=== PATIENT | male | born 1970 | race Caucasian/White ===

== ENCOUNTER → 2018-05-27 | Outpatient (REF) | payer BC ==
[2018-05-27 13:02] LABS: BASO # 0.1 10^3/uL (0.0-0.2); BASO % 1.3 % (0.0-1.0); EOS # 0.2 10^3/uL (0.0-0.50); EOS % 5.9 % (0.0-3.0); HEMATOCRIT 42.1 % (42.0-52.0); HEMOGLOBIN 14.6 g/dl (13.5-17.5); IMMATURE GRANULOCYTE % 0.3 % (0-3.0); LYMPH # 1.1 10^3/uL (1.5-4.5); LYMPH % 30.6 % (24.0-44.0); MEAN CORPUSCULAR HEMOGLOBIN 29.5 pg (27.0-33.0); MEAN CORPUSCULAR HGB CONC 34.7 g/dl (32.0-36.5); MEAN CORPUSCULAR VOLUME 85.1 fl (80.0-96.0); MONO # 0.3 10^3/uL (0.0-0.8); MONO % 8.3 % (0.0-5.0); NEUTROPHILS % 53.6 % (36.0-66.0); PLATELET COUNT, AUTOMATED 183 10^3/uL (150-450); RED BLOOD COUNT 4.95 10^6/uL (4.30-6.10); RED CELL DISTRIBUTION WIDTH 12.1 % (11.5-14.5); WHITE BLOOD COUNT 3.7 10^3/uL (4.0-10.0)
[2018-05-27 14:42] LABS: ALBUMIN 4.3 GM/DL (3.2-5.2); ALKALINE PHOSPHATASE 41 U/L (45-117); ALT/SGPT 34 U/L (12-78); ANION GAP 5 MEQ/L (8-16); AST/SGOT 13 U/L (7-37); BLOOD UREA NITROGEN 16 MG/DL (7-18); CARBON DIOXIDE LEVEL 32 MEQ/L (21-32); CHLORIDE LEVEL 107 MEQ/L (98-107); CHOLESTEROL LEVEL 262 MG/DL (<200); CHOLESTEROL RISK RATIO 4.517 (<5); CREATININE FOR GFR 0.92 MG/DL (0.70-1.30); GLOMERULAR FILTRATION RATE > 60.0 (>60); GLUCOSE, FASTING 94 MG/DL (70-100); HDL CHOLESTEROL 58 MG/DL (>40); LDL CHOLESTEROL 174.6 MG/DL (<100); NON-HDL-C 204 MG/DL; POTASSIUM SERUM 4.5 MEQ/L (3.5-5.1); SODIUM LEVEL 144 MEQ/L (136-145); TOTAL PROTEIN 7.6 GM/DL (6.4-8.2); TRIGLYCERIDES LEVEL 147 MG/DL (<150)
== END ==
LOC: M LABDRAW1 11:16
DX: Z00.00 Encounter for general adult medical examination without abnormal findings (principal)
CPT/HCPCS: 80053

== ENCOUNTER → 2019-06-02 | Outpatient (REF) | payer BC ==
[2019-06-02 13:23] LABS: BASO % 0.7 % (0.0-1.0); EOS # 0.2 10^3/uL (0.0-0.50); EOS % 5.6 % (0.0-3.0); HEMATOCRIT 42.8 % (42.0-52.0); HEMOGLOBIN 14.9 g/dl (13.5-17.5); LYMPH # 1.3 10^3/uL (1.5-4.5); LYMPH % 32.4 % (24.0-44.0); MEAN CORPUSCULAR HGB CONC 34.8 g/dl (32.0-36.5); MEAN CORPUSCULAR VOLUME 86.1 fl (80.0-96.0); MONO # 0.3 10^3/uL (0.0-0.8); MONO % 6.6 % (0.0-5.0); NEUTROPHILS # 2.2 10^3/uL (1.8-7.7); NEUTROPHILS % 54.5 % (36.0-66.0); PLATELET COUNT, AUTOMATED 164 10^3/uL (150-450); RED BLOOD COUNT 4.97 10^6/uL (4.30-6.10); WHITE BLOOD COUNT 4.1 10^3/uL (4.0-10.0)
[2019-06-02 13:56] LABS: ALT/SGPT 26 U/L (12-78); BILIRUBIN,TOTAL 0.7 MG/DL (0.2-1.0); BLOOD UREA NITROGEN 13 MG/DL (7-18); CALCIUM LEVEL 8.6 MG/DL (8.5-10.1); CARBON DIOXIDE LEVEL 28 MEQ/L (21-32); CHLORIDE LEVEL 107 MEQ/L (98-107); CHOLESTEROL LEVEL 231 MG/DL (<200); CREATININE FOR GFR 0.88 MG/DL (0.70-1.30); GLOMERULAR FILTRATION RATE > 60.0 (>56); GLUCOSE, FASTING 89 MG/DL (70-100); HDL CHOLESTEROL 50 MG/DL (>40); LDL CHOLESTEROL 154 MG/DL (<100); NON-HDL-C 181 MG/DL; POTASSIUM SERUM 4.1 MEQ/L (3.5-5.1); SODIUM LEVEL 141 MEQ/L (136-145); TRIGLYCERIDES LEVEL 135 MG/DL (<150)
== END ==
LOC: M LABDRAW1 13:11
PROVIDERS: ATTEND Family Medicine
DX: Z00.00 Encounter for general adult medical examination without abnormal findings (principal); R00.1 Bradycardia, unspecified

== ENCOUNTER → 2020-07-26 | Outpatient (CLI) | payer BC ==
[~2020-07-26] MED LIST: BUDE8.43 NS; HYDR-3713 PO
== END ==
LOC: M LABSMTC 11:27
PROVIDERS: ATTEND Anesthesiology
DX: Z01.812 Encounter for preprocedural laboratory examination (principal); Z20.828 Contact with and (suspected) exposure to other viral communicable diseases

== ENCOUNTER 2020-07-31 08:52 | Day surgery (SDC) | payer BC ==
[~2020-07-31] VITALS: Ht 182.9 cm; Wt 90.7 kg
[~2020-07-31 08:52] MED LIST changes: +BUPIVACAINE HCL 0.5% 30 ML VIAL As Ordered ONE; -HYDR-3713 PO; +LIDOCAINE 1% SDV 30ML VIAL As Ordered ONE; +LIDOCAINE 2% 100MG/5ML SDV (FOR ANES.) As Ordered ONE; +LR 1,000 ML IV ONE; +MIDAZOLAM INJ 2MG/2ML VIAL (J2250 PER 1MG) As Ordered ONE; +ONDANSETRON 4MG/2ML VIAL As Ordered ONE; +ceFAZolin SOD 2 GM in IV 1 EA IV ONE; +dexameTHASONE 4 MG/ML 1ML VIAL (J1100 PER 1MG) As Ordered ONE; +fentaNYL 100 MCG/2 ML INJECTION (J3010) As Ordered ONE; +propofoL 200 MG/20 ML VIAL As Ordered ONE
[2020-07-31] MEDS ORDERED: KETAMINE HCL 200 MG/20 ML VIAL As Ordered ONE (09:44)
[2020-07-31] MEDS ORDERED: ACETAMINOPHEN 1000MG 100ML IV BTL (OFIRMEV) (J0131 PER 10MG) As Ordered ONE (10:01)
[2020-07-31] MEDS ORDERED: propofoL 200 MG/20 ML VIAL As Ordered ONE (10:20)
[2020-07-31] MEDS ORDERED: HYDR-3713 PO (10:42)
[2020-07-31] MEDS ORDERED: oxyCODONE 5MG TAB PO PRN (11:15)
[2020-07-31] MEDS ORDERED: ONDANSETRON 4MG/2ML VIAL IV PRN (11:15)
[2020-07-31] MEDS ORDERED: LR 1,000 ML IV SCH (11:15)
[2020-07-31 12:20] VITALS: BP 137/83
--- NOTE | 2020-08-01 07:59 | RO ---
DATE OF OPERATION: 07/31/2020 PREOPERATIVE DIAGNOSIS: Right foot bunion hallux valgus. POSTOPERATIVE DIAGNOSIS: Right foot bunion hallux valgus. PROCEDURE: Right foot bunionectomy, first metatarsal osteotomy and Jero osteotomy. SURGEON: Ronald Hunter DPM ENVIRONMENTAL SERVICES AIDE: None. ANESTHESIA: Monitored anesthesia care. PREOPERATIVE INJECTION: 20 cc of a 1:1 mixture of 1% Lidocaine with 0.5% Marcaine plain. ESTIMATED BLOOD LOSS: Minimal. MATERIALS: Arthrex 3.5 headless compression screw, 3-0 and 4-0 Vicryl, and Arthrex DynaNite staple. INJECTION: 1 cc Decadron 4 mg/mL. COMPLICATIONS: None. CONDITION: Stable. INDICATIONS: Moo Estrella is a 50-year-old male who was admitted to [facility] with a painful bunion. He presents today for surgical correction. The patient's side and site were identified and marked preoperatively. Consent was reviewed and obtained. The risks, complications and alternatives to the procedure explained to the patient in detail and all questions were answered. PROCEDURE: The patient was brought to the operating room and placed on the operating room table in the supine position. Monitored anesthesia care was delivered by the anesthesia team. Preoperative injection of 20 cc of 1:1 mixture of 1% Lidocaine plain and 0.5% Marcaine plain were injected in the right foot. The right foot was prepped and draped in normal sterile fashion. A tourniquet was applied on the right ankle and inflated to 250 mmHg. A dorsomedial incision was made and carried through with a #15 blade. Dissection was carried down to the first metatarsophalangeal joint capsule. A T-capsulotomy was performed exposing the metatarsal head. Following this, a lateral release was performed releasing the adductor tendon and sesamoidal ligaments. A McGlamry elevator was used to release the plantar structures. Following this, the medial eminence of the metatarsal head was resected with a sagittal saw and an osteotomy was performed on the metatarsal head, transposing it laterally. This was fixated with an Arthrex 3.5 headless compression screw. The remaining bone ledge was resected with a sagittal saw and smoothed with a rasp. Following this, attention was paid to the proximal phalanx. A wedge of the medial cortex was removed using the sagittal saw, placing the toe in a more medial position. This was fixated with a Arthrex DynaNite staple. Following this, the site was irrigated with normal saline. A small wedge of capsule was removed using #15 blade and the capsule was repaired with 3-0 Vicryl, subcutaneous closure with 4-0 Vicryl and skin closure with 4-0 nylon. One cc of Decadron was injected. Sterile dressings were applied. Tourniquet was deflated. Patient was brought PACU with vital signs stable and neurovascular status intact. He will be partial weightbearing. He will follow up in our office in two days. TARSHA
== END 2020-07-31 12:20 | disposition home or self-care (01) ==
LOC: M SDC 08:52
PROVIDERS: ATTEND Podiatrist Foot & Ankle Surgery
DX: M20.11 Hallux valgus (acquired), right foot (principal); J45.909 Unspecified asthma, uncomplicated; G43.909 Migraine, unspecified, not intractable, without status migrainosus
CPT/HCPCS: 28299; 88300; 97116; C1713; J0131; J0690; J1100; J2250; J2405; J3010

== ENCOUNTER → 2020-09-23 | Outpatient (CLI) | payer BC ==
[~2020-09-23] MED LIST changes: -BUPIVACAINE HCL 0.5% 30 ML VIAL As Ordered ONE; +HYDR-3713 PO; -LIDOCAINE 1% SDV 30ML VIAL As Ordered ONE; -LIDOCAINE 2% 100MG/5ML SDV (FOR ANES.) As Ordered ONE; -LR 1,000 ML IV ONE; -MIDAZOLAM INJ 2MG/2ML VIAL (J2250 PER 1MG) As Ordered ONE; -ONDANSETRON 4MG/2ML VIAL As Ordered ONE; -ceFAZolin SOD 2 GM in IV 1 EA IV ONE; -dexameTHASONE 4 MG/ML 1ML VIAL (J1100 PER 1MG) As Ordered ONE; -fentaNYL 100 MCG/2 ML INJECTION (J3010) As Ordered ONE; -propofoL 200 MG/20 ML VIAL As Ordered ONE
[2020-09-23 12:07] LABS: BASO % 0.7 % (0.0-1.0); EOS # 0.5 10^3/uL (0.0-0.5); EOS % 10.8 % (0.0-3.0); HEMATOCRIT 42.3 % (42.0-52.0); HEMOGLOBIN 14.3 g/dl (13.5-17.5); LYMPH # 1.5 10^3/uL (1.5-5.0); LYMPH % 35.2 % (24.0-44.0); MEAN CORPUSCULAR HEMOGLOBIN 29.2 pg (27.0-33.0); MEAN CORPUSCULAR HGB CONC 33.8 g/dl (32.0-36.5); MEAN CORPUSCULAR VOLUME 86.5 fl (80.0-96.0); MONO # 0.4 10^3/uL (0.0-0.8); MONO % 9.3 % (0.0-5.0); NEUTROPHILS # 1.8 10^3/uL (1.5-8.5); NEUTROPHILS % 43.8 % (36.0-66.0); PLATELET COUNT, AUTOMATED 172 10^3/uL (150-450); RED BLOOD COUNT 4.89 10^6/uL (4.30-6.10); WHITE BLOOD COUNT 4.2 10^3/uL (4.0-10.0)
[2020-09-23 12:35] LABS: ALBUMIN 4.2 GM/DL (3.2-5.2); ALT/SGPT 38 U/L (12-78); BILIRUBIN,TOTAL 0.7 MG/DL (0.2-1.0); BLOOD UREA NITROGEN 16 MG/DL (7-18); CARBON DIOXIDE LEVEL 32 MEQ/L (21-32); CHLORIDE LEVEL 107 MEQ/L (98-107); CHOLESTEROL LEVEL 263 MG/DL (<200); CHOLESTEROL RISK RATIO 5.595 (<5); CREATININE FOR GFR 0.95 MG/DL (0.70-1.30); GLOMERULAR FILTRATION RATE > 60.0 (>56); GLUCOSE, FASTING 107 MG/DL (70-100); HDL CHOLESTEROL 47 MG/DL (>40); LDL CHOLESTEROL 190 MG/DL (<100); NON-HDL-C 216 MG/DL; POTASSIUM SERUM 4.7 MEQ/L (3.5-5.1); SODIUM LEVEL 143 MEQ/L (136-145); TOTAL PROTEIN 6.9 GM/DL (6.4-8.2); TRIGLYCERIDES LEVEL 129 MG/DL (<150)
== END ==
LOC: M WUC 09:22
PROVIDERS: ATTEND Family Medicine
DX: Z00.00 Encounter for general adult medical examination without abnormal findings (principal)